=== PATIENT | female | born 1980 | race Caucasian/White ===

== ENCOUNTER 2016-06-21 08:22 | Emergency (ER) ==
[2016-06-21 11:40] LABS: MANUAL DIFF NEEDED? NO
[2016-06-21 11:45] LABS: URINE MICRO REVIEW NEEDED? NO; URINE SOURCE CLEAN CATCH
[2016-06-21 11:52] LABS: BILIRUBIN URINE NEGATIVE (NEGATIVE); BLOOD URINE MODERATE (NEGATIVE); COLOR YELLOW; GLUCOSE URINE NEGATIVE (NEGATIVE); LEUKOCYTES URINE SMALL (NEGATIVE); NITRITE URINE NEGATIVE (NEGATIVE); PH URINE 6.5; PROTEIN URINE TRACE mg/dL (NEGATIVE); SP GRAVITY URINE 1.018; TURBIDITY URINE CLEAR (CLEAR); UROBILINOGEN URINE NORMAL (NORMAL)
[2016-06-21 11:53] LABS: UR EPITHELIAL CELLS >10 /HPF (<10); URINE BACTERIA NEGATIVE /HPF; URINE CULTURE NEEDED? YES; URINE RBC TNTC /HPF (<10); URINE WBC <10 /HPF (<10)
--- NOTE | 2016-06-21 12:08 | PROVIDER DOCUMENTATION ---
HPI-General Adult - General Chief Complaint: Headache Stated Complaint: headache/cp/neck pain Time Seen by Provider: 06/21/16 10:17 Source: patient Allergies/Adverse Reactions: Patient Allergies Allergy/AdvReac Type Severity Reaction Status Date / Time aspirin Allergy ABDOMINAL Verified 06/21/16 09:49 PAIN naproxen [From Naprosyn] Allergy RASH Verified 05/14/16 19:23 Home Medications: Home Medication List Medication Instructions Recorded Confirmed Last Taken Type No Home Medications 06/21/16 06/21/16 Unknown History - History of Present Illness -Gen Adult Nature of Presenting Problems: 36 year old obese WF presents with c/o headache for 1 month, pain is dull, constant, left side of head, left forehead, radiates down the left lateral side of neck into left shoulder. pt reports associated numbness/tinging to entire left side of body, swelling to left auricular region, lymph nodes to left side of face enlarged. and nausea. pt denies a history of headaches prior to this. pt reports she has taken tylenol and motrin at home with out relief. pt also reports LUQ pain, onset at the same time as the headaches developed. additional complaints include diarrhea alternating with constipation for 5 years since cholecystectotomy 5 years ago. pt report she does not have a primary care doctor. pt recently finished a z-pack and a medrol dose pack for a sinus infection. Location of Pain/Injury: reports: head, upper extremity (left), lower extremity (left) Pain Radiation: reports: shoulder(s) (left) Quality of Pain: reports: aching, dull Severity: reports: mild Onset/Duration: reports: other (1 month ago) Timing: reports: still present, constant, getting worse. denies: improving Context/Activities at Onset: reports: none. denies: light activity, moderate activity, vigorous activity, recent emotional stress, recent physical stress, recent trauma history, possible bad food, cold exposure, eating, out of country travel, rest, sleep, sexual activity, other Modifying Factors: improves with: nothing. worse with: analgesics, antacids Associated Symptoms: reports: constipation, diarrhea, headaches, nausea, sensory /motor loss. denies: dizziness, seizure, shortness of breath, swelling/mass in abdomen, syncope, vomiting, weakness, other Recently seen or treated by another doctor?: Yes (pt was evlauted 1 mo ago for CHRISTIANSON) Review of Systems - Adult - REVIEW OF SYSTEMS - ADULT Constitutional: reports: no symptoms reported. denies: chills, fever, fatique Eyes: reports: no symptoms reported. denies: discharge, decreased vision, blurred vision, double vision, eye pain, redness Ears, Nose, Mouth & Throat: reports: see HPI, other (anterior auricular tenderness). denies: ear discharge, ear pain, hearing loss, tinnitus, epistaxis , sinus problem, nose pain, loose teeth, mouth/dental pain, mouth swelling, hoarseness, throat pain, throat swelling Cardiovascular: reports: no symptoms reported. denies: chest pain, heart murmur , orthopnea Respiratory: reports: no symptoms reported. denies: chronic cough, cough, shortness of breath, wheezing Gastrointestinal: reports: see HPI, abdominal pain, constipation, diarrhea, nausea. denies: hematemesis, difficulty swallowing, frequent heartburn, poor appetite, rectal bleeding, vomiting Genitourinary: reports: no symptoms reported. denies: dysuria, hematuria, urgency Musculoskeletal: reports: no symptoms reported. denies: bone pain, joint pain, joint swelling, neck pain Integumentary: reports: no symptoms reported. denies: hives, itching, rash, skin sores/ulcer Neurological: reports: see HPI, headache/migraines, numbness (entire left side of body.). denies: ataxia, dizziness/vertigo, loss of balance, paresthesia, seizure, slurred speech, syncope, tremors Psychiatric: reports: no symptoms reported. denies: anxiety, anti-depressant use, alcohol/drug dependence, depression Endocrine: reports: no symptoms reported. denies: change in skin pigment, cold intolerance, heat intolerance, increased hunger, increased thirst, polyuria Hematologic/Lymphatic: reports: see HPI, swollen lymph nodes (pt reports the lymph nodes to the left side of her face have been enlarged.). denies: blood clots, easy bruising, lymphedema, prolonged bleeding Allergic/Immunologic: reports: no symptoms reported. denies: allergic reactions , frequent infections All Other Systems: Reviewed and Negative Past History - Adult - PAST MEDICAL HISTORY-ADULT Review of Records: reports: Old Records Reviewed, Nursing Assessment Review, Medications Reviewed, Social history reviewed & non-contributory. Major Childhood Illnesses: reports: denies history Cardiovascular: reports: denies history Respiratory: reports: denies history Gastrointestinal: reports: GERD Genitourinary: reports: denies history Endocrine/Immune: reports: denies history - PRIOR SURGERIES/PROCEDURES Surgical/Procedure History: reports: cholecystectomy, other (gallbladder removed ) - PRIOR HOSPITALIZATIONS Prior Hospitalizations: reports: none - IMMUNIZATION STATUS Childhood Immunizations: See Nurse Assessment Flu Vaccine: See Nurse Assessment - FAMILY HISTORY Family History: reviewed, not pertinent - SOCIAL HISTORY Smoking: denies, non-smoker Substance Use: none/never Alcohol Use Frequency: never Physical Exam-General - PHYSICAL EXAM-ADULT Initial Vital Signs Reviewed: Yes - CONSTITUTIONAL General Appearance: appears well, alert, no apparent distress. negative: mild distress, moderate distress, severe distress, lethargic, slow to respond, obtunded, combative - EYES Eyes: PERRL/EOMI, pink conjunctivae. negative: conjuctival exudate, EOM palsy, meningismus, pale conjunctivae, photophobia, sclera injected, scleral icterus, subconjunctival hemorrhage, sunken eyes - HEAD, EARS, NOSE, MOUTH & THROAT HENMT: normocephalic/atraumatic, moist mucous membranes, normal ENT inspection, TMs normal, pharynx normal. negative: angioedema, dental decay, hearing deficit , pharyngeal erythema, tonsillar exudate, TM abnormal, TM obscurred by cerumen, frontal tenderness, maxillary tenderness - NECK Neck: full range of motion, supple, normal inspection, tender lateral (left lateral neck tenderness for 1 month. anterior auricular region with scant swelling, no erythema or pre/post auricular lymphadenopathy.). negative: non- tender, Brudzinski's sign, C-spine tenderness, limited range of motion, lymphadenopathy, meningismus, trachial deviation, tender midline, thyromegaly - RESPIRATORY Respiratory: chest non-tender, lungs clear, normal breath sounds, no pleuratic chest pain, no respiratory distress, no accessory muscle use. negative: respiratory distress, decreased breath sounds, accessory muscle use, crackles, rales, rhonchi, stridor, wheezing - CARDIOVASCULAR Cardiovascular: normal peripheral pulses, regular rate, rhythm, no edema, no gallop, no JVD, no murmur - CHEST (BREASTS) Chest/Breast: no tenderness - GASTROINTESTINAL (ABDOMEN) Abdominal Exam: normal bowel sounds, soft, no organomegaly, no pulsatile mass, tenderness (LUQ). negative: non tender, distended, guarding, rigid, rebound, hernia, mass, hepatomegaly, spleenomegaly, McBurney's point tenderness, Heard' s sign, obturator sign, prominent aortic pulsations, psoas, Rovsing's sign - GENITOURINARY Female Genitalia/Pelvic Exam: deferred Rectal Exam: deferred Hemoccult Exam: deferred - LYMPHATIC Lymphatic: negative: cervical node tenderness, enlargement, striations, streaking - MUSCULOSKELETAL Back Exam: normal inspection, no CVA tenderness, no vertebral tenderness. negative: CVA tenderness, decreased range of motion, swelling, vertebral tenderness Extremity: normal range of motion, non-tender, normal gait, normal inspection, no pedal edema, no calf tenderness, normal capillary refill. negative: deformity, erythema, inflammation, joint effusion Peripheral Pulses: radial (R): 3+, radial (L): 3+, dorsalis-pedis (R): 3+, dorsalis-pedis (L): 3+ - SKIN Integumentary: normal color, normal turgor, warm/dry - NEUROLOGIC Neurologic: lead recoverer II-XII nml as tested, grossly normal, no motor/sensory deficits , negative romberg's sign. negative: abnormal cerebellar tests, abnormal lead recoverer II -XII, abnormal gait, aphasia, EOM palsy, facial droop, focal weakness, motor weakness, sensory deficit, positive romberg's sign - PSYCHIATRIC Psych/Mental Status: normal mood/affect, normal thought content, normal thought process, oriented x 3 Progress - PLAN OF CARE/RESULTS Progress/Plan/Lab Results: Laboratory Tests 06/21/16 06/21/16 06/21/16 11:12 11:12 11:21 WBC RBC Hgb Hct MCV MCH MCHC RDW Std Deviation Plt Count MPV Immature Gran % (Auto) Neut % (Auto) Lymph % (Auto) King % (Auto) Eos % (Auto) Baso % (Auto) Immature Gran # (Auto) Neut # (Auto) Lymph # (Auto) King # (Auto) Eos # (Auto) Baso # (Auto) ESR Sodium 141 Potassium 3.5 Chloride 99 Carbon Dioxide 28 Anion Gap 14 BUN 12 Creatinine 0.8 Estimated GFR/1.73 m2 > 60 BUN/Creatinine Ratio 15 Glucose 92 Calculated Osmolality 281 Calcium 9.1 Total Bilirubin 0.41 AST 14 ALT 15 Alkaline Phosphatase 62 C-Reactive Prot, Quant 4.18 Total Protein 7.5 Albumin 4.3 Globulin 3.2 Albumin/Globulin Ratio 1.3 Amylase 26 Lipase 21 Urine Source CLEAN CATCH Urine Color YELLOW Urine Turbidity CLEAR Urine pH 6.5 Ur Specific [place] 1.018 Urine Protein TRACE A Ur Glucose (Stick) NEGATIVE Ur Ketones (Stick) NEGATIVE Urine Blood MODERATE A Urine Nitrite NEGATIVE Urine Bilirubin NEGATIVE Urobilinogen Dipstick NORMAL Urine Leukocytes SMALL A Urine WBC (Auto) <10 Urine RBC (Auto) TNTC A U Epithel Cells (Auto) >10 A Urine Bacteria (Auto) NEGATIVE Urine Opiates Screen NONE DETECTED Ur Oxycodone Screen NONE DETECTED Ur Methadone, Qual NONE DETECTED Ur Barbiturates Screen NONE DETECTED Ur Phencyclidine Scrn NONE DETECTED Ur Amphetamines Screen NONE DETECTED U Benzodiazepines Scrn NONE DETECTED Urine Cocaine Screen NONE DETECTED U Cannabinoids Screen NONE DETECTED 06/21/16 11:21 WBC 8.90 RBC 5.04 Hgb 14.2 Hct 43.1 MCV 85.5 MCH 28.2 MCHC 32.9 L RDW Std Deviation 13.8 Plt Count 354 MPV 10.6 H Immature Gran % (Auto) 0.0 Neut % (Auto) 75.3 H Lymph % (Auto) 15.8 L King % (Auto) 8.0 Eos % (Auto) 0.6 Baso % (Auto) 0.3 Immature Gran # (Auto) 0.00 Neut # (Auto) 6.70 H Lymph # (Auto) 1.41 King # (Auto) 0.71 H Eos # (Auto) 0.05 Baso # (Auto) 0.03 ESR 3 Sodium Potassium Chloride Carbon Dioxide Anion Gap BUN Creatinine Estimated GFR/1.73 m2 BUN/Creatinine Ratio Glucose Calculated Osmolality Calcium Total Bilirubin AST ALT Alkaline Phosphatase C-Reactive Prot, Quant Total Protein Albumin Globulin Albumin/Globulin Ratio Amylase Lipase Urine Source Urine Color Urine Turbidity Urine pH Ur Specific [place] Urine Protein Ur Glucose (Stick) Ur Ketones (Stick) Urine Blood Urine Nitrite Urine Bilirubin Urobilinogen Dipstick Urine Leukocytes Urine WBC (Auto) Urine RBC (Auto) U Epithel Cells (Auto) Urine Bacteria (Auto) Urine Opiates Screen Ur Oxycodone Screen Ur Methadone, Qual Ur Barbiturates Screen Ur Phencyclidine Scrn Ur Amphetamines Screen U Benzodiazepines Scrn Urine Cocaine Screen U Cannabinoids Screen Orders Category Date Time Status Saline Loc DIRECTED Care 06/21/16 10:41 Active [ED: Urine Bedside] ORDERED Care 06/21/16 11:18 Active NPO Diet 06/21/16 10:41 Completed HEAD W/O CONTRAST [CT] Stat Exams 06/21/16 10:42 Completed NECK W/O CONTRAST [CT] Stat Exams 06/21/16 10:42 Completed AMYLASE [CHEM] Stat Lab 06/21/16 11:21 Completed CBC WITH ELECTRONIC DIFF [HEME] Stat Lab 06/21/16 11:21 Completed COMPREHENSIVE METABOLIC PANEL [CHEM] Stat Lab 06/21/16 11:21 Completed CRP [C REACTIVE PROT QUANT] [CHEM] Stat Lab 06/21/16 11:21 Completed LIPASE [CHEM] Stat Lab 06/21/16 11:21 Completed SED RATE [HEME] Stat Lab 06/21/16 11:21 Completed UDS [URINE DRUG SCREEN] Stat Lab 06/21/16 11:12 Completed URINALYSIS W/POSS RFLX CULT [URINALYSIS] Stat Lab 06/21/16 11:12 Completed URINE CULTURE [RM] Routine Lab 06/21/16 12:31 Received Vital Signs - 24 hr 06/21/16 06/21/16 08:30 14:04 Temperature 97.7 F 97.4 F L Pulse Rate 76 74 Respiratory 18 20 Rate Blood Pressure 132/68 128/70 O2 Sat by Pulse 100 100 Oximetry - REASSESSMENT Reassessment #1 Time Reassessed: 13:01 Status: improving (pt now has full ROM and reports pain is significantly improved.) - CT/MRI 1 CT Study: Head, Neck Impression: Normal (no acute disease per Dr. Kwan.) Departure - Departure Time of Disposition Order: 13:01 DIAGNOSIS: Numbness Headache Qualifiers: Headache type: unspecified Headache chronicity pattern: acute headache Intractability: not intractable Qualified Code(s): R51 - Headache Abdominal pain Qualifiers: Abdominal location: generalized Qualified Code(s): R10.84 - Generalized abdominal pain Diarrhea Qualifiers: Diarrhea type: unspecified type Qualified Code(s): R19.7 - Diarrhea, unspecified Disposition: HOME 01 Certified Medical Emergency: Emergent Condition: Stable Additional Instructions: Follow up with Dr. Hamlin for your headaches, Dr. Cope for your primary care or the free [facility] and Dr. Randall for gastrointestinal. ED Follow Up Instructions: You have been treated by a care provider in the Emergency Department. These instructions are being provided to you so you can have an understanding of how to care for yourself upon discharge. Upon discharge from the Emergency Department, you are responsible for making arrangements for follow-up care by a physician of your choice. Take all prescribed medications as directed. Return to the Emergency Department immediately for any new or worsening symptoms. You may call the Physician Referral phone number at [phone] to obtain a list of Physicians who are taking new patients. Referrals: None,PCP [Primary Care Provider] - Bryanna Cope MD [STAFF PHYSICIAN] - [facility] [NON-STAFF] - Bebo Loera MD [STAFF PHYSICIAN] - Aarti Hamlin III, MD [STAFF PHYSICIAN] - Forms: Return to School/Parent Work Instructions: Migraine Headache, [id number] Attestation - Physician/ AMINA Attestation Patient care was provided by Advanced Practice Provider:: Yes Advanced Practice Provider:: Najma Godfrey Advanced Practice Provider documentation review:: The Mid-level provider documentation, treatment plan and medical decision making was reviewed by the physician who agrees with all treatment and medical decision making by the MLP.
[2016-06-21 12:18] LABS: BASO% 0.3 % (0.0-0.8); EOS# 0.05 X1000 (0.0-0.7); EOS% 0.6 % (0.0-10.0); HEMATOCRIT 43.1 % (37.0-47.0); HEMOGLOBIN 14.2 g/dL (12.0-16.0); LYMPH# 1.41 X1000 (1.2-3.4); LYMPH% 15.8 % (20.5-51.1); MCH 28.2 PG (27-31); MCHC 32.9 g/dL (33-37); MCV 85.5 FL (81-99); MONO# 0.71 X1000 (0.11-0.59); MPV 10.6 FL (7.4-10.4); NEUT% 75.3 % (42.2-75.2); PLT 354 X1000 (130-400); RBC 5.04 XMIL (4.2-5.4)
[2016-06-21 12:22] LABS: UR AMPHETAMINES QUAL NONE DETECTED (NONE DETECT); UR BARBITUATES QUAL NONE DETECTED (NONE DETECT); UR BENZODIAZEPIN QUAL NONE DETECTED (NONE DETECT); UR CANNABINOIDS QUAL NONE DETECTED (NONE DETECT); UR COCAINE QUAL NONE DETECTED (NONE DETECT); UR METHADONE QUAL NONE DETECTED (NONE DETECT); UR OPIATES QUAL NONE DETECTED (NONE DETECT); UR OXYCODONE QUAL NONE DETECTED (NONE DETECT); UR PCP QUAL NONE DETECTED (NONE DETECT)
[2016-06-21 12:28] LABS: AGAP 14; ALBUMIN 4.3 g/dL (3.5-5.0); ALKALINE PHOSPHATASE 62 U/L (32-104); AMYLASE 26 U/L (20-200); BUN 12 mg/dL (8-22); CALCIUM 9.1 mg/dL (8.8-10.2); CHLORIDE 99 mmol/L (98-107); COSMO 281; GOT 14 U/L (10-30); GPT 15 U/L (10-36); LIPASE 21 U/L (13-60); POTASSIUM 3.5 mmol/L (3.5-5.1); SODIUM 141 mmol/L (136-145); TCO2 28 mmol/L (25-35); TOTAL BILIRUBIN 0.41 mg/dL (0.20-1.00); TOTAL PROTEIN 7.5 g/dL (6.3-8.3)
--- NOTE | 2016-06-21 12:32 | Diag Imaging Result Document ---
PROCEDURE NAME: NECK W/O CONTRAST - 06/21/2016 CT OF THE NECK: COMPARISON: None. FINDINGS: There is a moderately large mucosal retention cyst in the left maxillary sinus measuring about 2.7 cm. There is a smaller 1 on the right side. No evidence of sinusitis. The soft tissues of the neck are normal. There are normal sized bilateral cervical lymph nodes. The cervical spine is normally aligned. Vertebral body heights and intervertebral disk spaces are preserved. No evidence of fracture or subluxation. IMPRESSION: No acute disease.
--- NOTE | 2016-06-21 12:39 | Diag Imaging Result Document ---
PROCEDURE NAME: HEAD W/O CONTRAST - 06/21/[address]: COMPARISON: None. FINDINGS: The ventricles and sulci are normal in size and contour. There is no mass, hemorrhage, or evidence of acute ischemia. The bony calvaria is intact. The visualized paranasal sinuses and mastoid air cells are clear. IMPRESSION: Negative head CT.
[2016-06-21 13:29] LABS: SED RATE 3 mm/hr (0-20)
[2016-06-21 14:13] VITALS: BP 128/70
== END 2016-06-21 14:16 | disposition home or self-care (01) ==
LOC: ED 08:22
DX: R51 Headache (principal); R10.84 Generalized abdominal pain; R19.7 Diarrhea, unspecified; R20.0 Anesthesia of skin; M54.2 Cervicalgia; M25.512 Pain in left shoulder; R20.2 Paresthesia of skin; R11.0 Nausea; R10.12 Left upper quadrant pain; K59.00 Constipation, unspecified; R22.1 Localized swelling, mass and lump, neck; R10.812 Left upper quadrant abdominal tenderness; E66.9 Obesity, unspecified
CPT/HCPCS: 70450; 70490; 80053; 81001; 82150; 83690; 85025; 85651; 86140; 87088; G0480; 80324; 80345; 80346; 80349; 80353; 80358; 80361; 80365; 83992